=== PATIENT | male | born 1995 | race Caucasian/White ===

== ENCOUNTER → 2021-05-26 | Outpatient (CLI) | payer OTHER, SELFPAY ==
[2021-05-26 16:02] LABS: Amphetamine Urine VISTA POSITIVE (<1000 ng/mL); Barbiturate Urine VISTA NEGATIVE (< 200 ng/mL); Benzodiazepine Urine VISTA NEGATIVE (< 200 ng/mL); Cocaine Urine VISTA NEGATIVE (< 300 ng/mL); Ecstacy Urine VISTA NEGATIVE (< 500 ng/mL); Methadone Urine VISTA NEGATIVE (< 300 ng/mL); PCP Urine VISTA NEGATIVE (< 25 ng/mL); THC Urine VISTA NEGATIVE (< 50 ng/mL); Vista UDS pH Range 5
== END | disposition home or self-care (01) ==
LOC: LABSPEC 12:50
PROVIDERS: Visit Provider Registered Nurse
DX: Z00.00 Encounter for general adult medical examination without abnormal findings (principal)
CPT/HCPCS: 80307

== ENCOUNTER 2022-05-20 12:47 | Emergency (ER) | payer SELFPAY ==
[2022-05-20 12:48] VITALS: BP 120/90; PULSE 61; RESP 18; TEMP 36.3; O2SAT 100; BMI 21.9
[2022-05-20] MEDS: Mixture 30 ML Bottle 5 ML TOPICAL (13:11)
--- NOTE | 2022-05-20 13:29 | EX.ED.DYSGE1 ---
HPI History of Present Illness Chief Complaint: Nosebleed Informant: patient and spouse/S.O. Narrative Narrative: 26-year-old male presenting to the emergency room with epistaxis. Patient states that he began bleeding several hours ago out of his right nares and has not been able to get it stopped. He tried direct pressure and then he inserted a tampon. He states he did have some blood on the back of his mouth but it is stopped now. He denies any local trauma to the nose. He has had a couple nosebleeds recently. PFSH PFSH Home Medications lisdexamfetamine 10 mg capsule (Vyvanse) 50 mg PO DAILY 04/20/22 [History Last Taken Unknown] Allergy/AdvReac Type Severity Reaction Status Date / Time No Known Allergies Allergy Verified 05/20/22 12:47 Social History (Updated 05/20/22 @ 13:[address] Solis Skaggs, DO) Smoking Status: Never smoker substance use type: does not use ROS ROS ED Constitutional Constitutional ED: Denies chills or weight loss Eyes Eyes: Denies change in vision or diplopia ENT ENT ED: Reports other Details: Epistaxis ; Denies ear pain, rhinorrhea or sore throat Cardiovascular Cardiovascular: Denies chest pain, orthopnea, palpitations or racing heartbeat Respiratory/Chest Respiratory/Chest: Denies cough, dyspnea or orthopnea Gastrointestinal Gastrointestinal: Denies abdominal pain, diarrhea, nausea or vomiting Genitourinary Genitourinary ED: Denies dysuria, hematuria or urinary frequency Musculoskeletal Musculoskeletal: Denies arthralgias or myalgias Integumentary Denies abscess or rash Neurologic Neurologic: Denies headache(s) or weakness Psychiatric Psychiatric: Denies anxiety, depression, suicidal ideation or suicidal thoughts Endocrine Endocrinology: Denies polydipsia, polyphagia or polyuria Allergic/Immunologic Allergic/Immunologic ED: Denies mouth swelling, tongue swelling or urticaria EXAM Physical Exam Const Vital Signs: 05/20/22 12:48 Temperature 97.3 F L Temperature Source Temporal Pulse Rate 61 Respiratory Rate 18 Blood Pressure 120/90 H Blood Pressure Mean 100 Pulse Ox 100 Oxygen Delivery Method Room Air Positive well nourished and well developed General Appearance ED: well developed HEENT Reports normocephalic, head/scalp atraumatic and moist mucous membranes HEENT Narrative: There is an obvious blood vessel in the anterior plexus with a fresh clot on it. There is no active bleeding. No blood in the oropharynx. Eyes PERRL and EOMs intact bilaterally Neck no lymphadenopathy, supple and no JVD Resp normal respiratory effort and clear to auscultation bilaterally Cardio regular rate, regular rhythm and no murmurs GI normal to inspection, nondistended, normoactive bowel sounds and non-tender Palpation: soft Back/Spine no CVA tenderness and normal ROM Extremity normal to inspection General Extremety ED: Negative for edema General Extremity: Negative for edema Neuro oriented x3 and CN's II-XII intact bilaterally Sensorium / Orientation: alert Motor Exam: strength 5/5 throughout Psych mental status grossly normal Mood & Affect: Negative for depressed or tearful Skin no rashes or lesions noted and no wounds MDM MDM MDM Narrative Medical decision making narrative: Dr. Cabrales is maxed was used on a cottonball and then direct pressure applied. Repeat evaluation shows the vessel to have shrunk. He has not been any further bleeding I do not think we need to pack him at this time but I did advise that if he is unable to get it to stop with my instructions at home he will need to return for packing. He notes understanding the plan Discharge Plan Triage Chief Complaint: Nosebleed ED Provider: Solis Skaggs Dx/Rx/DC Orders Clinical Impression: Acute anterior epistaxis Instructions: ED Epistaxis (Adult) Prescriptions: No Action Vyvanse 10 mg capsule 50 mg PO DAILY Referrals: Stepan Centeno MD [Med Staff - Active Staff] - As Needed (FOR ENT) Disposition Disposition: Home, Self Care
== END 2022-05-20 14:35 | disposition home or self-care (01) ==
PROVIDERS: Emergency Provider Emergency Medicine; PCP Family Medicine; Visit Provider Emergency Medicine
DX: R04.0 Epistaxis (principal)
CPT/HCPCS: 99282